=== PATIENT | male | born 1985 | race Caucasian/White ===

== ENCOUNTER 2023-01-03 01:02 | Inpatient (IN) | payer OTHER ==
[2023-01-03 02:14] LABS: #Eosinphils 0.1 10x3/uL (0.0-0.5); #Monocytes 0.5 10x3/uL (0.0-1.1); #Neutrophils 7.9 10x3/uL (1.5-8.4); %Basophils 0.3 % (0.0-2.0); %Eosinophils 1.3 % (0.0-6.0); %Lymphocytes 13.9 % (18.0-47.0); %Monocytes 4.9 % (0.0-10.0); %Neutrophils 79.3 % (40.0-75.0); Hemoglobin 12.5 g/dL (13.5-17.5); Mean Corpuscular HGB CONC 29.7 g/dL (32.0-36.0); Mean Corpuscular Hemoglobin 26.5 pg (27.0-33.0); Mean Corpuscular Volume 89.4 fl (81.2-95.1); Platelet Count 270 10x3/uL (150-450); RBC Distribution Width 15.9 % (11.5-14.5); Red Blood Cell (RBC) Count 4.71 10x6/uL (4.32-5.72)
[2023-01-03 02:24] LABS: ALT (SGPT) 18 U/L (8-55); AST (SGOT) 17 U/L (5-34); Albumin 3.6 g/dL (3.5-5.0); Alkaline Phosphatase 45 U/L (40-110); Anion Gap 12 mmol/L (10-20); BUN (Urea Nitrogen) 12 mg/dL (8.9-20.6); Bilirubin, Total 0.5 mg/dL (0.2-1.2); CRP (Inflammatory) 3.28 mg/dL (= or < 0.5); Calc. Creatinine Clearance 0 mL/min (70-130); Calcium 8.8 mg/dL (7.8-10.44); Carbon Dioxide 35 mmol/L (22-29); Chloride 97 mmol/L (98-107); Estimated GFR 123; Globulin 4.4 g/dL (2.4-3.5); Glucose 113 mg/dL (70-105); Potassium 4.1 mmol/L (3.5-5.1); Sodium 140 mmol/L (136-145)
[2023-01-03] MEDS ORDERED: VANCOMYCIN 2 GRAM/400 ML BAG 2 GM in Premix Bag 1 BAG IVPB SCH (03:00)
[2023-01-03 03:34] LABS: Anisocytosis SLIGHT = 6-15 cells (100X) (0-5/hpf); Hypochromia SLIGHT = 6-15 cells (100X) (0-5/hpf); Microcytosis SLIGHT = 6-15 cells (100X) (0-5/hpf); Polychromasia SLIGHT = 2-3 cells (100X) (0-2/hpf)
[2023-01-03 03:35] LABS: Macrocytosis SLIGHT = 6-15 cells (100X) (0-5/hpf); Platelet Morphology Comment Appears Adequate; Stomatocytes SLIGHT = 2-5 cells (100X) (0-1/hpf)
[2023-01-03] MEDS ORDERED: Guaifenesin DM 100-10/5 ML UDCUP PO PRN (03:40)
[2023-01-03] MEDS ORDERED: HYDROcodone/Acetaminophen 5/325 mg Tablet PO PRN (03:40)
[2023-01-03] MEDS ORDERED: Calcium Carbonate 500 MG ChewTAB PO PRN (03:40)
[2023-01-03] MEDS ORDERED: Ondansetron PF 4 MG/2 ML Vial IVP PRN (03:40)
[2023-01-03] MEDS ORDERED: Acetaminophen 325 MG TAB PO PRN (03:40)
[2023-01-03] MEDS ORDERED: Senokot S 8.6-50 MG TAB PO PRN (03:40)
[2023-01-03] MEDS ORDERED: Furosemide 20 MG/2 ML VIAL SLOW IVP SCH ×2 (04:00→16:00)
[2023-01-03] MEDS ORDERED: Furosemide 40 MG/4 ML VIAL ONE (05:01)
[2023-01-03] MEDS ORDERED: HYDROcodone/Acetaminophen 5/325 mg Tablet ONE ×2 (05:09→09:23)
[2023-01-03 06:28] VITALS: BMI 77.0
[2023-01-03] MEDS ORDERED: Furosemide 40 MG TAB ONE (08:37)
[2023-01-03] MEDS: Furosemide 20 MG TAB PO SCH (08:48)
[2023-01-03] MEDS: HYDROcodone/Acetaminophen 5/325 mg Tablet PO PRN (09:25)
[2023-01-03] MEDS ORDERED: Vancomycin 1.5 GRAM/300 ML BAG 1.5 GM in Premix Bag 1 BAG IVPB SCH (14:00)
[2023-01-03] MEDS ORDERED: Furosemide 20 MG/2 ML VIAL ONE (17:02)
[2023-01-03 17:29] LABS: Bilirubin Neg (Negative); Blood, Urine Negative (Negative); Clarity Clear (Clear); Glucose, Urine (Dipstick) Normal (Negative); Ketone, Urine Negative (Negative); Leukocyte 25 (Negative); Nitrite Negative (Negative); Protein, Urine (Dipstick) Negative (Neg-Trace); Specific Gravity, Urine 1.025 (1.005-1.030); Urobilinogen Normal mg/dL (Less than 2)
[2023-01-03 17:53] LABS: Bacteria/HPF Rare-Few HPF (None Seen); RBC/HPF 0-3 HPF (0-3); Squamous Epithelial 0-3 HPF (0-3)
[2023-01-03] MEDS: Clindamycin/D5W 600 MG in Premix Bag 1 BAG IVPB SCH (22:35)
[2023-01-04] MEDS: HYDROcodone/Acetaminophen 5/325 mg Tablet PO PRN ×2 (00:03→21:42)
[2023-01-04] MEDS ORDERED: HYDROcodone/Acetaminophen 5/325 mg Tablet ONE (00:06)
[2023-01-04 03:29] LABS: #Eosinphils 0.2 10x3/uL (0.0-0.5); #Monocytes 0.6 10x3/uL (0.0-1.1); #Neutrophils 7.1 10x3/uL (1.5-8.4); %Basophils 0.2 % (0.0-2.0); %Lymphocytes 12.1 % (18.0-47.0); %Monocytes 6.9 % (0.0-10.0); %Neutrophils 78.5 % (40.0-75.0); Hemoglobin 11.7 g/dL (13.5-17.5); Mean Corpuscular HGB CONC 29.4 g/dL (32.0-36.0); Mean Corpuscular Hemoglobin 26.7 pg (27.0-33.0); Mean Corpuscular Volume 90.9 fl (81.2-95.1); Mean Platelet Volume 10.3 fl (7.4-10.4); Platelet Count 250 10x3/uL (150-450); RBC Distribution Width 15.8 % (11.5-14.5); Red Blood Cell (RBC) Count 4.38 10x6/uL (4.32-5.72); White Blood Cell (WBC) Count 9.1 10x3/uL (3.5-10.5)
[2023-01-04 03:30] LABS: Anion Gap 11 mmol/L (10-20); BUN (Urea Nitrogen) 10 mg/dL (8.9-20.6); Calc. Creatinine Clearance 630 mL/min (70-130); Calcium 8.6 mg/dL (7.8-10.44); Carbon Dioxide 37 mmol/L (22-29); Chloride 96 mmol/L (98-107); Estimated GFR 127; Glucose 97 mg/dL (70-105); Potassium 4.1 mmol/L (3.5-5.1); Sodium 140 mmol/L (136-145)
[2023-01-04] MEDS: Clindamycin/D5W 600 MG in Premix Bag 1 BAG IVPB SCH (06:31)
[2023-01-04] MEDS ORDERED: Ventolin HFA Inhaler 60 PUFF INHALER INH PRN (09:01)
[2023-01-04] MEDS: Furosemide 20 MG TAB PO SCH (10:17)
[2023-01-04] MEDS: Clindamycin 150 MG CAP PO SCH ×2 (11:52→18:53)
[2023-01-05] MEDS: Clindamycin 150 MG CAP PO SCH ×3 (00:44→13:33)
[2023-01-05] MEDS: HYDROcodone/Acetaminophen 5/325 mg Tablet PO PRN (06:13)
[2023-01-05] MEDS: Furosemide 20 MG TAB PO SCH (08:57)
[2023-01-05 11:41] LABS: #Eosinphils 0.1 10x3/uL (0.0-0.5); #Monocytes 0.6 10x3/uL (0.0-1.1); #Neutrophils 5.8 10x3/uL (1.5-8.4); %Basophils 0.3 % (0.0-2.0); %Eosinophils 1.7 % (0.0-6.0); %Lymphocytes 13.4 % (18.0-47.0); %Monocytes 7.3 % (0.0-10.0); Hemoglobin 11.3 g/dL (13.5-17.5); Mean Corpuscular HGB CONC 28.9 g/dL (32.0-36.0); Mean Corpuscular Hemoglobin 26.7 pg (27.0-33.0); Mean Corpuscular Volume 92.2 fl (81.2-95.1); Mean Platelet Volume 10.1 fl (7.4-10.4); Platelet Count 214 10x3/uL (150-450); RBC Distribution Width 15.7 % (11.5-14.5); Red Blood Cell (RBC) Count 4.24 10x6/uL (4.32-5.72); White Blood Cell (WBC) Count 7.6 10x3/uL (3.5-10.5)
[2023-01-05 12:01] LABS: BUN (Urea Nitrogen) 10 mg/dL (8.9-20.6); CRP (Inflammatory) 2.58 mg/dL (= or < 0.5); Calc. Creatinine Clearance 672 mL/min (70-130); Calcium 8.9 mg/dL (7.8-10.44); Estimated GFR 130; Glucose 105 mg/dL (70-105)
[2023-01-05 12:07] LABS: Platelet Morphology Comment Appears Adequate
[2023-01-05 12:08] LABS: Anion Gap 14 mmol/L (10-20); Carbon Dioxide 37 mmol/L (22-29); Chloride 95 mmol/L (98-107); Potassium 4.3 mmol/L (3.5-5.1); Sodium 142 mmol/L (136-145); Stomatocytes SLIGHT = 2-5 cells (100X) (0-1/hpf)
[2023-01-05 12:09] LABS: Anisocytosis SLIGHT = 6-15 cells (100X) (0-5/hpf); Hypochromia SLIGHT = 6-15 cells (100X) (0-5/hpf); Macrocytosis SLIGHT = 6-15 cells (100X) (0-5/hpf); Microcytosis SLIGHT = 6-15 cells (100X) (0-5/hpf); Target Cells SLIGHT = 2-5 cells (100X) (0-1/hpf)
[2023-01-05 14:16] VITALS: BP 130/58; TEMP 98.5
== END 2023-01-05 16:28 | disposition home or self-care (01) | DRG 603 ==
LOC: CSHERS 01:02 → CSHERHOLD 03:41 → CSHTELE 01-04 10:00
PROVIDERS: ADMIT Student in an Organized Health Care Education/Training Program; ATTEND Family Medicine
DX: L03.116 Cellulitis of left lower limb (principal); E66.2 Morbid (severe) obesity with alveolar hypoventilation; J96.11 Chronic respiratory failure with hypoxia; Z68.45 Body mass index [BMI] 70 or greater, adult; I89.0 Lymphedema, not elsewhere classified; I10 Essential (primary) hypertension; J45.909 Unspecified asthma, uncomplicated; F12.90 Cannabis use, unspecified, uncomplicated; Z79.899 Other long term (current) drug therapy; Z99.81 Dependence on supplemental oxygen; Z88.1 Allergy status to other antibiotic agents; Z88.8 Allergy status to other drugs, medicaments and biological substances; Z88.2 Allergy status to sulfonamides; Z82.49 Family history of ischemic heart disease and other diseases of the circulatory system; Z71.51 Drug abuse counseling and surveillance of drug abuser
CPT/HCPCS: 36415; 80048; 80053; 81001; 83605; 84145; 84443; 85025; 86140; 87040; 94660; 94760; 94762; 96365; 96366; 97139; J1650; J1940; J1956; J3370; J3490

== ENCOUNTER 2023-07-05 15:25 | Inpatient (IN) | payer OTHER ==
[2023-07-05] MEDS ORDERED: Morphine 4 MG/ML VIAL ONE (16:41)
[2023-07-05] MEDS ORDERED: Ondansetron PF 4 MG/2 ML Vial ONE (16:42)
[2023-07-05 17:01] LABS: #Eosinphils 0.1 10x3/uL (0.0-0.5); #Monocytes 0.5 10x3/uL (0.0-1.1); #Neutrophils 9.1 10x3/uL (1.5-8.4); %Basophils 0.3 % (0.0-2.0); %Eosinophils 1.2 % (0.0-6.0); %Monocytes 4.5 % (0.0-10.0); Hematocrit 43.7 % (38.8-50.0); Hemoglobin 13.7 g/dL (13.5-17.5); Mean Corpuscular HGB CONC 31.4 g/dL (32.0-36.0); Mean Corpuscular Hemoglobin 27.1 pg (27.0-33.0); Mean Corpuscular Volume 86.5 fl (81.2-95.1); Mean Platelet Volume 10.5 fl (7.4-10.4); Platelet Count 251 10x3/uL (150-450); RBC Distribution Width 15.9 % (11.5-14.5); Red Blood Cell (RBC) Count 5.05 10x6/uL (4.32-5.72); White Blood Cell (WBC) Count 11.5 10x3/uL (3.5-10.5)
[2023-07-05 17:06] LABS: ALT (SGPT) 13 U/L (8-55); AST (SGOT) 18 U/L (5-34); Albumin 3.9 g/dL (3.5-5.0); Alkaline Phosphatase 41 U/L (40-110); Anion Gap 17 mmol/L (10-20); BUN (Urea Nitrogen) 8 mg/dL (8.9-20.6); Bilirubin, Total 0.6 mg/dL (0.2-1.2); Calc. Creatinine Clearance 0 mL/min (70-130); Calcium 9.4 mg/dL (7.8-10.44); Carbon Dioxide 32 mmol/L (22-29); Chloride 96 mmol/L (98-107); Estimated GFR 117; Globulin 4.5 g/dL (2.4-3.5); Glucose 118 mg/dL (70-105); Potassium 4.1 mmol/L (3.5-5.1); Protein, Total 8.4 g/dL (6.0-8.3); Sodium 141 mmol/L (136-145)
[2023-07-05 17:27] LABS: Platelet Adequacy Comment Appears Adequate; Platelet Clumps MODERATE; RBC Morph Comment Within Normal Limits
[2023-07-05] MEDS ORDERED: traMADol HCl 50 MG TAB PO PRN (17:41)
[2023-07-05] MEDS ORDERED: Ondansetron ODT 4 MG TAB PO PRN (17:41)
[2023-07-05] MEDS ORDERED: TETANUS, DIPHTHERIA TOX,ADULT (TDVAX) 0.5 ML VIAL IM ONE (17:41)
[2023-07-05] MEDS ORDERED: Ipratropium/Albuterol 3 ML NEB NEB PRN (17:41)
[2023-07-05] MEDS ORDERED: hydrALAZINE 20 MG/ML VIAL SLOW IVP PRN (17:41)
[2023-07-05] MEDS ORDERED: Ondansetron PF 4 MG/2 ML Vial IVP PRN (17:41)
[2023-07-05] MEDS ORDERED: Ventolin HFA Inhaler 60 PUFF INHALER INH PRN (17:47)
[2023-07-05] MEDS ORDERED: Scopolamine 1 mg/72 hour Patch TD SCH (21:00)
[2023-07-05 21:51] LABS: Bilirubin Neg (Negative); Blood, Urine Negative (Negative); Clarity Clear (Clear); Glucose, Urine (Dipstick) Normal (Negative); Ketone, Urine Negative (Negative); Leukocyte Negative (Negative); Nitrite Negative (Negative); Protein, Urine (Dipstick) 15 mg/dl (Neg-Trace)
[2023-07-05 22:25] LABS: Bacteria/HPF Rare-Few HPF (None Seen); CAUTI Indications for Culture Pelvic or flank pain; Mucous/LPF Rare LPF (<2+); RBC/HPF None Seen HPF (0-3); Squamous Epithelial 0-3 HPF (0-3); WBC/HPF 0-3 HPF (0-3)
[2023-07-05 22:28] LABS: Urine Culture Reflex No No
[2023-07-05 22:42] VITALS: BMI 56.3
[2023-07-05] MEDS: LevoFLOXacin 750 mg/D5W 750 MG in Premix 1 BAG IVPB SCH (23:08)
[2023-07-05] MEDS: Ketorolac Tromethamine 30 MG/ML VIAL IVP SCH (23:08)
[2023-07-05] MEDS: Acetaminophen 500 MG TAB PO SCH (23:08)
[2023-07-05] MEDS: D5 1/2 NS w/20 mEq KCL 1,000 ML IV SCH (23:17)
[2023-07-06] MEDS: D5 1/2 NS w/20 mEq KCL 1,000 ML IV SCH ×3 (02:00→20:07)
[2023-07-06] MEDS: Ketorolac Tromethamine 30 MG/ML VIAL IVP SCH ×6 (03:34→23:28)
[2023-07-06] MEDS: Morphine 4 MG/ML VIAL SLOW IVP PRN ×2 (03:38→20:25)
[2023-07-06] MEDS: Acetaminophen 500 MG TAB PO SCH ×4 (11:04→20:32)
[2023-07-06] MEDS ORDERED: PROPOFOL 20 ML ONE ×2 (13:25→13:50)
[2023-07-06] MEDS ORDERED: Fentanyl 250 MCG/5 ML VIAL ONE (13:25)
[2023-07-06] MEDS ORDERED: Succinylcholine 200 MG/10 ml SYRINGE FS ONE (13:26)
[2023-07-06] MEDS ORDERED: Rocuronium Bromide 10 MG/ML (10ML VIAL) ONE (13:26)
[2023-07-06] MEDS ORDERED: Lidocaine 1% PF 5 ML VIAL ONE (13:26)
[2023-07-06] MEDS ORDERED: Dexamethasone 4 mg/ml Vial ONE (13:27)
[2023-07-06] MEDS ORDERED: Ondansetron PF 4 MG/2 ML Vial ONE ×2 (13:27→16:02)
[2023-07-06] MEDS ORDERED: SUGAMMADEX SODIUM 200 MG/2 ML VIAL ONE (13:28)
[2023-07-06] MEDS ORDERED: Bupivacaine PF 0.5% 30 ML VIAL ONE (14:00)
[2023-07-06] MEDS ORDERED: EPINEPHrine 1 MG/ML AMP ONE (14:00)
[2023-07-06] MEDS ORDERED: Dexmedetomidine 200 MCG/2 ML VIAL ONE (14:08)
[2023-07-06] MEDS ORDERED: PHENYLEPHRINE-NS 100 MCG/ML 10 ML SYRINGE ONE (14:19)
[2023-07-06] MEDS ORDERED: Ketorolac Tromethamine 30 MG/ML VIAL ONE (16:09)
[2023-07-06] MEDS: LevoFLOXacin 750 mg/D5W 750 MG in Premix 1 BAG IVPB SCH (20:32)
[2023-07-06 20:55] LABS: Hematocrit 35.1 % (38.8-50.0); Hemoglobin 10.7 g/dL (13.5-17.5); Mean Corpuscular HGB CONC 30.5 g/dL (32.0-36.0); Mean Corpuscular Hemoglobin 27.4 pg (27.0-33.0); Mean Corpuscular Volume 89.8 fl (81.2-95.1); Mean Platelet Volume 10.5 fl (7.4-10.4); Platelet Count 354 10x3/uL (150-450); RBC Distribution Width 16.1 % (11.5-14.5); Red Blood Cell (RBC) Count 3.91 10x6/uL (4.32-5.72); White Blood Cell (WBC) Count 26.3 10x3/uL (3.5-10.5)
[2023-07-06] MEDS ORDERED: Gabapentin 100 MG CAP PO SCH (21:00)
[2023-07-06 21:36] LABS: Band 2 % (5-11); Lymphocytes 4 % (21-51); Monocytes 2 % (0-10)
[2023-07-06 21:40] LABS: MDiff Complete? YES; Neutrophil 92 % (42-75)
[2023-07-06 21:41] LABS: Anisocytosis SLIGHT = 6-15 cells (100X) (0-5/hpf); Hypochromia SLIGHT = 6-15 cells (100X) (0-5/hpf); Platelet Adequacy Comment Appears Adequate
[2023-07-07] MEDS ORDERED: Lactated Ringer's 1,000 ML IV SCH ×3 (01:00→06:15)
[2023-07-07] MEDS ORDERED: Albumin 25% 25 GM/100 ML BOT IVPB SCH (01:00)
[2023-07-07 01:31] LABS: Hematocrit 31.2 % (38.8-50.0); Hemoglobin 9.4 g/dL (13.5-17.5); MDiff Complete? YES; Mean Corpuscular HGB CONC 30.1 g/dL (32.0-36.0); Mean Corpuscular Hemoglobin 26.9 pg (27.0-33.0); Mean Corpuscular Volume 89.4 fl (81.2-95.1); Mean Platelet Volume 10.6 fl (7.4-10.4); Platelet Count 452 10x3/uL (150-450); RBC Distribution Width 15.9 % (11.5-14.5); Red Blood Cell (RBC) Count 3.49 10x6/uL (4.32-5.72); White Blood Cell (WBC) Count 29.3 10x3/uL (3.5-10.5)
[2023-07-07 03:04] LABS: Hematocrit 30.7 % (38.8-50.0); Hemoglobin 9.4 g/dL (13.5-17.5); Mean Corpuscular HGB CONC 30.6 g/dL (32.0-36.0); Mean Corpuscular Hemoglobin 27.4 pg (27.0-33.0); Mean Corpuscular Volume 89.5 fl (81.2-95.1); Mean Platelet Volume 10.7 fl (7.4-10.4); Platelet Count 415 10x3/uL (150-450); RBC Distribution Width 15.9 % (11.5-14.5); Red Blood Cell (RBC) Count 3.43 10x6/uL (4.32-5.72); White Blood Cell (WBC) Count 34.8 10x3/uL (3.5-10.5)
[2023-07-07 03:25] LABS: ALT (SGPT) 37 U/L (8-55); AST (SGOT) 51 U/L (5-34); Albumin 3.6 g/dL (3.5-5.0); Alkaline Phosphatase 33 U/L (40-110); Anion Gap 20 mmol/L (10-20); BUN (Urea Nitrogen) 16 mg/dL (8.9-20.6); Bilirubin, Total 1.2 mg/dL (0.2-1.2); Calc. Creatinine Clearance 182 mL/min (70-130); Carbon Dioxide 26 mmol/L (22-29); Chloride 96 mmol/L (98-107); Estimated GFR 54; Globulin 2.9 g/dL (2.4-3.5); Glucose 181 mg/dL (70-105); Potassium 4.3 mmol/L (3.5-5.1); Protein, Total 6.5 g/dL (6.0-8.3); Sodium 138 mmol/L (136-145)
[2023-07-07 03:54] LABS: MDiff Complete? YES
[2023-07-07 04:07] LABS: Anisocytosis SLIGHT = 6-15 cells (100X) (0-5/hpf); Hypochromia SLIGHT = 6-15 cells (100X) (0-5/hpf); Platelet Adequacy Comment Appears Adequate
[2023-07-07 04:27] LABS: Monocytes 4 % (0-10)
[2023-07-07 04:28] LABS: Anisocytosis SLIGHT = 6-15 cells (100X) (0-5/hpf); Hypochromia SLIGHT = 6-15 cells (100X) (0-5/hpf)
[2023-07-07 04:36] VITALS: BP 108/52; TEMP 98.1
[2023-07-07 04:36] LABS: Band 27 % (5-11); Lymphocytes 2 % (21-51); Metamyelocyte 1 % (0-0); Reactive Lymphocytes 1 % (0-10)
[2023-07-07 04:37] LABS: Monocytes 2 % (0-10); Neutrophil 67 % (42-75)
[2023-07-07 04:44] LABS: Band 27 % (5-11); Lymphocytes 3 % (21-51); Neutrophil 66 % (42-75)
[2023-07-07] MEDS: Ketorolac Tromethamine 30 MG/ML VIAL IVP SCH (05:21)
[2023-07-07] MEDS ORDERED: Ketorolac Tromethamine 30 MG/ML VIAL IVP PRN (06:31)
[2023-07-07 07:36] LABS: Actual Bicarbonate (HCO3v) 25.4 mEq/L (22-28); Base Excess -10.5 mEq/L (-2 - +2); Calcium, Ionized (venous) 2.48 mmol/L (1.16-1.32); Chloride (VBG) 100 mmol/L (98-106); Hematocrit-VBG 24 % (42.0-52.0); Hemoglobin (Hb) 8.1 g/dL (13.2-17.3); Potassium (VBG) 4.85 mmol/L (3.70-5.30); Puncture Site Other Site; Sodium 143 mmol/L (133-146); pH (venous) 6.755 (7.32-7.43)
[2023-07-07] MEDS ORDERED: Sodium Bicarb 50 MEQ/50 ML Abboject 8.4% SYRINGE ONE (08:00)
[2023-07-07] MEDS ORDERED: Calcium Chloride 1 GM/10 ML Abboject SYRINGE ONE (08:00)
[2023-07-07] MEDS ORDERED: Ibuprofen 600 MG TAB PO PRN (08:00)
[2023-07-07] MEDS ORDERED: Furosemide 40 MG TAB PO SCH (09:00)
[2023-07-07] MEDS ORDERED: Gabapentin 100 MG CAP PO SCH (09:00)
[2023-07-07] MEDS ORDERED: FLU VACC QS2023-24(6MOS UP)/PF 60 MCG/0.5 ML SYRINGE IM ONE (09:00)
== END 2023-07-07 15:14 | disposition expired | DRG 418 ==
LOC: CSHERS 15:25 → CSHTELE 17:41 → CSHICU 07-06 21:48
PROVIDERS: ADMIT Specialist; ATTEND Specialist
PROC: 0FT44ZZ Resection of Gallbladder, Percutaneous Endoscopic Approach (ICD-10-PCS; principal; 2023-07-07)
PROC: 02HV33Z Insertion of Infusion Device into Superior Vena Cava, Percutaneous Approach (ICD-10-PCS; 2023-07-07)
DX: K80.00 Calculus of gallbladder with acute cholecystitis without obstruction (principal); Z68.43 Body mass index [BMI] 50.0-59.9, adult; E66.01 Morbid (severe) obesity due to excess calories; I10 Essential (primary) hypertension; J45.909 Unspecified asthma, uncomplicated; G47.30 Sleep apnea, unspecified
CPT/HCPCS: 36415; 36430; 71045; 76705; 80053; 81001; 82805; 83690; 85025; 86850; 86900; 86901; 88304; 93005; 94660; 94760; 94762; 96374; C1889; J0171; J1100; J1650; J1885; J1956; J2270; J2405; J2704; J3010; J3480; J7120; P9047; S0020